=== PATIENT | female | born 1945 | race Caucasian/White ===

== ENCOUNTER → 2016-12-07 | Outpatient (CLI) | payer MEDICARE, MEDICAID ==
[~2016-12-07] MED LIST: CYMBALTA60 MG PO; HYDROCODON-ACE1 EAC4 PO; LIPITOR40 MG PO; LOSARTAN-HCTZ1 EAC1 PO; NORVASC2.5 MG PO; PRILOSEC40 MG PO; SYMBICORT 80-10.2 GM INH; TYLENOL325 MG PO; [UNRECOGNIZED DRUG - OTHER] PO
== END | disposition disaster alternative care site (69) ==
LOC: LFPA 11:16
DX: Z91.040 Latex allergy status (principal); J45.20 Mild intermittent asthma, uncomplicated

== ENCOUNTER → 2016-12-14 | Outpatient (CLI) | payer MEDICARE, MEDICAID | END | disposition disaster alternative care site (69) | LOC: GRAD 10:48 | DX: R91.8 Other nonspecific abnormal finding of lung field (principal) ==

== ENCOUNTER → 2017-04-18 | Outpatient (CLI) | payer MEDICARE, MEDICAID | LOC: LFPA 09:01 | DX: Z01.818 Encounter for other preprocedural examination (principal); N39.0 Urinary tract infection, site not specified ==